=== PATIENT | male | born 1975 ===

== ENCOUNTER 2019-10-17 14:30 | Emergency (ER) | payer OTHER ==
--- NOTE | 2019-10-17 14:44 | EDM.PDOC ---
ED HPI GENERAL MEDICAL PROBLEM - General Chief Complaint: Laceration Stated Complaint: laceration Time Seen by Provider: 10/17/19 14:35 Source of Information: Reports: Patient, Old Records ([facility] chart/EMR) History Limitations: Reports: No Limitations - History of Present Illness INITIAL COMMENTS - FREE TEXT/NARRATIVE: The patient was brought to the emergency room via transport vehicle from [facility] for evaluation of a Workmen's Compensation injury, which occurred at about 14: 00 hours this afternoon. He accidentally cut his right hand on some metal banding with no previous significant injury to this area in the past. They did rinse out his laceration with tapwater and placed a dressing prior to arrival with no other medications given to this point. He is left-handed. No recent history of abdominal pain, heartburn, nausea, diarrhea, melena, gross hematochezia, or any food intolerance, including fatty foods, etc.. The patient also denies any recent fever, cough, wheezing, dyspnea, etc.. He denies any pain or discomfort. 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 [No Known Home Meds] 10/17/19 [History] Past Medical History HEENT History: Reports: None. Denies: Allergic Rhinitis, Cataract, Glaucoma, Hard of Hearing, Impaired Vision, Macular Degeneration, Otitis Media, Retinal Detachment Cardiovascular History: Reports: None, Hypertension. Denies: Arrhythmia, CAD, Heart Murmur, High Cholesterol, [place], Syncope Respiratory History: Reports: None. Denies: COPD Gastrointestinal History: Reports: None. Denies: GERD, PUD Genitourinary History: Reports: None. Denies: Acute Renal Failure, Chronic Renal Insuffiency, Renal Calculus, UTI, Recurrent Musculoskeletal History: Reports: Fracture, Other (See Below). Denies: Arthritis, Back Pain, Chronic, Gout, Neck Pain, Chronic, Osteoarthritis, RA, SLE Other Musculoskeletal History: Left wrist fracture in 1990. Neurological History: Reports: None. Denies: Concussion, Head Trauma, Seizure Psychiatric History: Reports: None. Denies: Anxiety, Depression Endocrine/Metabolic History: Reports: Obesity/BMI 30+ Hematologic History: Reports: None. Denies: Anemia, Blood Transfusion(s) Dermatologic History: Denies: Eczema, Psoriasis - Infectious Disease History Infectious Disease History: Reports: Chicken Pox. Denies: C-Difficile, Measles , Meningitis, Mononucleosis, MRSA, Mumps, Pertussis (Whooping Cough), Rubella, Scarlet Fever, Shingles, VRE - Past Surgical History Head Surgeries/Procedures: Reports: None HEENT Surgical History: Reports: None. Denies: Adenoidectomy, Myringotomy w Tube(s), Tonsillectomy Cardiovascular Surgical History: Reports: None Respiratory Surgical History: Reports: None GI Surgical History: Reports: None. Denies: Appendectomy, Cholecystectomy, Colonoscopy, EGD, Hernia, Abdominal, Hernia, Inguinal, Hernia Repair/Other Male Surgical History: Reports: Circumcision, Other (See Below). Denies: Vasectomy Other Male Surgeries/Procedures: Circumcision as an infant. Endocrine Surgical History: Reports: None Neurological Surgical History: Reports: None Musculoskeletal Surgical History: Reports: None. Denies: Arthroscopic Procedure , Carpal Tunnel, Ganglion Cyst, Joint Replacement, Shoulder Surgery Oncologic Surgical History: Reports: None Dermatological Surgical History: Reports: None Social & Family History - Living Situation & Occupation Living situation: Reports: , with Family Occupation: Employed ([employer] class [employer]) ED ROS GENERAL - Review of Systems Review Of Systems: Comprehensive ROS is negative, except as noted in HPI. ED EXAM, SKIN/RASH Exam: See Below Exam Limited By: No Limitations General Appearance: Alert, WD/WN, No Apparent Distress Head: Atraumatic, Normocephalic. No: Facial Swelling, Facial Tenderness, Sinus Tenderness Neck: Normal Inspection, Supple, Non-Tender, Full Range of Motion. No: Lymphadenopathy (L), Lymphadenopathy (R), Thyromegaly Respiratory/Chest: No Respiratory Distress, Lungs Clear, Normal Breath Sounds, No Accessory Muscle Use, Chest Non-Tender. No: Pleural Rub, Retractions Cardiovascular: Normal Peripheral Pulses, Regular Rate, Rhythm, No Edema, No Gallop, No JVD, No Murmur, No Rub. No: Gallop/S3, Gallop/S4, Friction Rub Peripheral Pulses: 2+: Radial (L), Radial (R) GI/Abdominal: Normal Bowel Sounds, Soft, Non-Tender, No Organomegaly, No Distention, No Abnormal Bruit, No Mass, Pelvis Stable, Other (Obese). No: Guarding (Male) Exam: Deferred Rectal (Males) Exam: Deferred Back Exam: Normal Inspection, Full Range of Motion. No: CVA Tenderness (L), CVA Tenderness (R), Muscle Spasm Extremities: Normal Range of Motion, No Pedal Edema, Normal Capillary Refill, Other (2 cm in length superficial laceration over the extensor surface in the interdigital space at the distal metacarpals of digits #1 and 2 of the right hand with no foreign body or significant vascular, nerve, etc. involvement.). No: Non-Tender (Minimal tenderness over the left side), Allen's Sign Neurological: Alert, Oriented, CN II-XII Intact, Normal Cognition, Normal Gait, No Motor/Sensory Deficits Skin: Normal Color, No Rash, Wound/Incision (As above). No: Diaphoretic Location, Skin: Upper Extremity, Right Characteristics: Linear, Other (As above) Associated features: Tenderness. No: Swelling, Inflammation Lymphatic: No Adenopathy ED SKIN PROCEDURES - Laceration/Wound Repair Right Dorsal Hand Appearance: Superficial, Clean Distal NVT: Neuro & Vascular Intact, No Tendon Injury Anesthetic Type: Local Local Anesthesia - Lidocaine (Xylocaine): 1% Plain Local Anesthetic Volume: Other (5.5 ml) Skin Prep: Providone-Iodine (Betadine) (Including soaking) Saline Irrigation (cc's): 0 Exploration/Debridement/Repair: Wound Explored, In a Bloodless Field, Explored to Base, No Foreign Material Found Closed with: Sutures Lac/Wound length In cm: 2.0 Suture Size: 4-0 # of Sutures: 5 Suture Type: Nylon, Interrupted, Simple Drain Placement: No Sterile Dressing Applied: Nurse Tetanus Status Addressed: Yes Complications: No Course - Vital Signs Last Recorded V/S: Last Vital Signs Temp 37.1 C 06/05/20 14:35 Pulse 70 10/17/19 15:05 Resp 20 10/17/19 14:35 BP 152/82 H 10/17/19 15:05 Pulse Ox 98 10/17/19 14:35 Vital Signs - 24 hr 10/17/19 10/17/19 10/17/19 14:35 14:49 15:05 Temperature [ 37.1 C Oral] Pulse, 72 70 Peripheral [ Pulse Oximetry] Respiratory 20 Rate Blood Pressure 160/97 H 165/70 H 152/82 H [Right Upper Arm] O2 Sat by Pulse 98 Oximetry - Orders/Labs/Meds Orders: Active Orders 24 hr Category Date Time Status Obtain Past Medical Record [OM.PC] Routine Oth 10/17/19 14:44 Active Labs: None Meds: Medications Discontinued Medications Generic Name Dose Route Start Last Admin Trade Name Xavierq PRN Reason Stop Dose Admin Lidocaine HCl 5 ml 10/17/19 14:45 10/17/19 14:51 Xylocaine-Mpf 1% INJECT 10/17/19 14:46 5 ml ONETIME ONE Administration Lidocaine HCl 5 ml 10/17/19 14:45 10/17/19 14:52 Xylocaine-Mpf 1% INJECT 10/17/19 14:46 5 ml ONETIME ONE Administration Neomycin/Polymyxin/Bacitracin 1 each 10/17/19 14:46 10/17/19 14:52 Triple Antibiotic Oint TOP 10/17/19 14:47 1 each ONETIME ONE Administration - Radiology Interpretation Free Text/Narrative:: None Departure - Departure Time of Disposition: 15:20 Disposition: Home, Self-Care 01 Condition: Good Clinical Impression: Laceration, Hypertension, Obesity - Discharge Information *PRESCRIPTION DRUG MONITORING PROGRAM REVIEWED*: Not Applicable *COPY OF PRESCRIPTION DRUG MONITORING REPORT IN PATIENT LUCY: Not Applicable Instructions: Hypertension, Adult, [id number], Laceration Care, Adult, Easy- to-Read, Sutures, Imani, or Adhesive Wound Closure, [id number] Referrals: PCP,None [Primary Care Provider] - Forms: ED Department Discharge Additional Instructions: 1. Follow up with your regular provider in 10-14 days for suture removal as directed. Bring these discharge instructions with you to that visit. 2. Tylenol 650 mg by mouth every 4 hours and/or OTC ibuprofen 2-3 tabs by mouth every 6 hours with food as directed./needed. You may stagger these medications for 48-72 hours only, which essentially means that you are receiving a pain medication about every 2 hours. 3. Antibacterial soap wash/soak with subsequent antibacterial dressing such as Neosporin, etc. as directed 2 times per day until the wound or laceration site completely heals. Keep the area clean and dry with activity restrictions as discussed. Never use hydrogen peroxide for wound care. 4. Work excuse- See Form 5. Continue to observe your blood pressures closely through your regular provider and the [facility] nurse 6. Consider scheduling update of your preventative healthcare at the above follow-up visit. 7. Immediately after this visit verify that your cellular telephone's voicemail has been activated and is empty. Also verify that your home telephone's answering machine is operating properly and has space to receive messages. Note that it is sometimes necessary for us to be able to contact you at a later date to discuss your medical care. 8. Please remember that we are ALWAYS here for you and want to answer any questions you may have. Feel free to call the hospital any time and we call you back FREDA. Sepsis Event Note - Evaluation Sepsis Screening Result: No Definite Risk - Focused Exam Vital Signs: Vital Signs Temp Pulse Resp BP Pulse Ox 10/17/19 15:05 70 152/82 H 10/17/19 14:49 165/70 H 10/17/19 14:35 37.1 C 72 20 160/97 H 98 Date Exam was Performed: 10/17/19 Time Exam was Performed: 15:26 - Problem List & Annotations (1) Laceration SNOMED Code(s): 684830048 Code(s): FIA0805 - Status: Acute Priority: High Current Visit: Yes Onset Date: 10/17/19 Annotation/Comment:: Excellent with laceration repair as above. Emergency room nurse did confirm through [facility] that last Td was given on 04/27/15. Wound Care, activity restrictions, etc. were extensively discussed. Workmen's Compensation and [facility] work excuse forms were completed. (2) Hypertension SNOMED Code(s): 54810223 Code(s): I10 - ESSENTIAL (PRIMARY) HYPERTENSION Status: Chronic Priority : Medium Current Visit: Yes Annotation/Comment:: History of borderline hypertension with no previous medical therapy. Only mild caffeine intake as above. Continue to observe closely by his regular provider, etc. with information concerning hypertension provided. He has very limited previous medical care with update of his HCM strongly encouraged. Qualifiers: Hypertension type: essential hypertension Qualified Code(s): I10 - Essential (primary) hypertension (3) Obesity SNOMED Code(s): 002626041, 742954490 Code(s): E66.9 - OBESITY, UNSPECIFIED Status: Chronic Priority: Medium Current Visit: Yes Annotation/Comment:: Weight loss in moderation are advisable. Qualifiers: Obesity type: due to excess calories Obesity classification: adult class 2 (BMI 35 - 39.9) - Problem List Review Problem List Initiated/Reviewed/Updated: Yes - My Orders Last 24 Hours: My Active Orders 10/17/19 14:44 Obtain Past Medical Record [OM.PC] Routine - Assessment/Plan Last 24 Hours: My Active Orders 10/17/19 14:44 Obtain Past Medical Record [OM.PC] Routine Assessment:: As above. Plan: As above. Extensive precautions were given to the patient, who is in agreement with the treatment plan. See Patient Instructions for further treatment and plan.
[2019-10-17] MEDS ORDERED: Bacitracin/Neomycin/Polymyxin B Oint 0.9 GM U/D Packet TOP ONE (14:46)
== END 2019-10-17 15:20 | disposition home or self-care (01) ==
LOC: LL.ED 14:30
DX: S61.411A Laceration without foreign body of right hand, initial encounter (principal); I10 Essential (primary) hypertension; E66.9 Obesity, unspecified; Z68.33 Body mass index [BMI] 33.0-33.9, adult; W26.9XXA Contact with unspecified sharp object(s), initial encounter
CPT/HCPCS: 12001; 99282-25; J2001